=== PATIENT | male | born 1970 | race Caucasian/White ===

== ENCOUNTER 2016-09-27 21:35 | Emergency (ER) | payer BC, OTHER ==
[2016-09-27 21:48] VITALS: BP 118/85
[2016-09-27] MEDS ORDERED: Tetan/Diph/Pertus SYR(Tdap)* 0.5 ML SYR(BOOSTRIX) use SYR IM ONE (21:54)
--- NOTE | 2016-09-27 22:01 | UC ---
Laceration HPI - HPI Summary HPI Summary: WAS ON A 10 FOOT LADDER IN [place] THIS EVENING WHEN HE LOST HIS BALANCE AND FELL. FACE STRUCK LADDER. HAS A LACERATION UNDER RIGHT EYE WITH EYE LID BRUISING AND SWELLING. NOT TENDER OVER ORBITS OR NOSE. NO LOC. UNKNOWN DATE OF LAST TETANUS. - History Of Current Complaint Chief Complaint: UCTrauma Stated Complaint: PT FELL OFF LADDER FACIAL INJURY / LACERATION Time Seen by Provider: 09/27/16 21:41 Hx Obtained From: Patient, Family/Wireless Sales Manager - Laceration Location: Face Mechanism Of Injury: Blunt Trauma Onset/Duration: Sudden Onset, Lasting Minutes, Still Present Severity: Moderate Pain Intensity: 4 Pain Scale Used: 0-10 Numeric - Allergies/Home Medications Allergies/Adverse Reactions: Allergies Allergy/AdvReac Type Severity Reaction Status Date / Time No Known Allergies Allergy Verified 09/27/16 21:40 Home Medications: Home Medications Naproxen TAB* [Naprosyn TAB*] 375 mg PO Q8H PRN 09/27/16 [History Confirmed ] PMH/Surg Hx/FS Hx/Imm Hx - Additional Past Medical History Additional PMH: ARTHRITIS - Surgical History Surgical History: None - Family History Known Family History: Positive: Diabetes - mother Negative: Cardiac Disease, Hypertension - Social History Alcohol Use: Weekly Alcohol Amount: 12 pack of beer a week Substance Use Type: None Smoking Status (MU): Former Smoker Amount Used/How Often: about 1 ppd Length of Time of Smoking/Using Tobacco: smoking age 16 to age 30, chewing since age 30 - Immunization History Most Recent Influenza Vaccination: NOT THIS SEASON Review of Systems Constitutional: Negative Skin: Bruising, Other - LACERATION UNDER RIGHT EYE Eyes: Negative Respiratory: Negative Cardiovascular: Negative Gastrointestinal: Negative All Other Systems Reviewed And Are Negative: Yes Physical Exam Triage Information Reviewed: Yes Appearance: Well-Appearing, No Pain Distress, Well-Nourished Vital Signs: Initial Vital Signs Temp 99.1 F 09/27/16 21:41 Pulse 82 09/27/16 21:41 Resp 18 09/27/16 21:41 BP 118/85 09/27/16 21:41 Pulse Ox 96 09/27/16 21:41 Vital Signs Reviewed: Yes Eyes: Positive: Conjunctiva Clear, Other: - PERRL, EOMI. ENT: Positive: Hearing grossly normal, Pharynx normal, TMs normal Neck: Positive: Supple Respiratory: Positive: No respiratory distress, No accessory muscle use Cardiovascular: Positive: Pulses Normal Abdomen Description: Positive: Soft Musculoskeletal: Positive: No Edema, Other: - NOT TTP OVER ORBITAL BONES OR NASAL BRIDGE Neurological: Positive: Alert Psychological: Positive: Age Appropriate Behavior Skin: Positive: Other - 3.5CM LINEAR LACERATION UNDER RIGHT EYE. RIGHT UPPER AND LOWER EYELIDS BRUISED AND SWOLLEN. Laceration Repair - Laceration Repair 1 Description: Linear Laceration Size After Repair: Length (cm) - 3.5CM, Width (mm) - 0MM, Depth (mm) - 4MM Modified For Repair: No Type Injection: Local Anesthesia Used: 1.0% Lido Irrigation With Pressure Irrigation Device: Yes Closure Material: Sutures - #7 Closure Method: Single Layer Suture Of: Skin Suture Type: Other - 6-0 SURGIPRO Laceration Course/Dx - Differential Dx - Laceration/Wound Provider Diagnoses: 1. LACERATION REPAIR - FACE. 2. FACIAL CONTUSION. 3. UPDATE TDAP Discharge - Discharge Plan Condition: Stable Disposition: HOME Patient Education Materials: Laceration (ED), Black Eye (ED), Facial Contusion (ED), Facial Laceration (ED) Referrals: Flo GalvinFlo [Primary Care Provider] - If Needed Additional Instructions: APPLY THIN LAYER ANTIBIOTIC OINTMENT UNDER BANDAGE FOR FIRST 2-3 DAYS ONLY. CHANGE BANDAGE DAILY AND NEEDED IF IT BECOMES SOILED OR WET. SEEK FOLLOW-UP IF YOU DEVELOP SPREADING REDNESS OF THE SKIN, PURULENT DRAINAGE, FEVER, INCREASED PAIN OR ANY OTHER CONCERNING SYMPTOMS. RETURN FOR SUTURE REMOVAL IN 10 DAYS GO TO THE ER WITHOUT FAIL IF YOU DEVELOP UNEQUAL PUPILS, VISUAL DISTURBANCE, GAIT INSTABILITY, SPEECH DIFFICULTY, NAUSEA/VOMITING, WORSENING HEADACHE, DIZZINESS, CONFUSION, WEAKNESS OR ANY OTHER CONCERNING SYMPTOMS. TETANUS IMMUNIZATION GIVEN: You have been given an immunization against tetanus. Please record this in your records. In general, a booster is needed only once every 10 years. The tetanus shot protects against tetanus or "lockjaw," which is a complication of certain wound infections (the tetanus shot cannot protect against the actual infection). The immunization site may become warm and red due to local reaction. If this occurs, apply warm compresses and take aspirin or ibuprofen to reduce inflammation and discomfort. Return for evaluation if the reaction becomes severe.
[2016-09-27] MEDS ORDERED: Lidocaine 1% MPF* 2 ML VIAL ONE (22:03)
== END 2016-09-27 22:40 | disposition home or self-care (01) ==
LOC: UCCORT 21:35
DX: S01.81XA Laceration without foreign body of other part of head, initial encounter (principal); W11.XXXA Fall on and from ladder, initial encounter; Y93.9 Activity, unspecified; Y92.59 Other trade areas as the place of occurrence of the external cause; F10.99 Alcohol use, unspecified with unspecified alcohol-induced disorder; F17.220 Nicotine dependence, chewing tobacco, uncomplicated; Z23 Encounter for immunization
CPT/HCPCS: 12013; 90471; 90715; 99211; G0463

== ENCOUNTER 2016-10-07 16:39 | Emergency (ER) | payer BC ==
[2016-10-07 16:54] VITALS: BP 120/74
--- NOTE | 2016-10-07 17:08 | UC ---
HPI Wound/Suture Re-check - HPI Summary HPI Summary: 46 female presents with need to have his sutures removed. He had [address] under his right eye approximately 10 days ago due to a laceration. He has not had any complications, discharge, or erythema of the area. States it looks much better and is not that sore anymore. Denies fever/chills. - History Of Current Complaint Chief Complaint: UCSkin Stated Complaint: SUTURE REMOVAL Time Seen by Provider: 10/07/16 16:57 Hx Obtained From: Patient Procedure Type: suture removal - Allergies/Home Medications Allergies/Adverse Reactions: Allergies Allergy/AdvReac Type Severity Reaction Status Date / Time No Known Allergies Allergy Verified 10/07/16 16:54 PMH/Surg Hx/FS Hx/Imm Hx Endocrine History Of: Denies: Diabetes Psychological History Of: Denies: Anxiety - Surgical History Surgical History: None - Family History Known Family History: Positive: Diabetes - mother Negative: Cardiac Disease, Hypertension - Social History Alcohol Use: Weekly Alcohol Amount: 12 pack of beer a week Substance Use Type: None Smoking Status (MU): Former Smoker Amount Used/How Often: about 1 ppd Length of Time of Smoking/Using Tobacco: smoking age 16 to age 30, chewing since age 30 - Immunization History Most Recent Influenza Vaccination: NOT THIS SEASON Review of Systems Constitutional: Negative Skin: Negative Eyes: Negative ENT: Negative Respiratory: Negative Cardiovascular: Negative Motor: Negative Neurovascular: Negative Musculoskeletal: Negative All Other Systems Reviewed And Are Negative: Yes Physical Exam Triage Information Reviewed: Yes Appearance: Well-Appearing, No Pain Distress, Well-Nourished Vital Signs: Initial Vital Signs Temp 99.2 F 10/07/16 16:52 Pulse 74 10/07/16 16:52 Resp 16 10/07/16 16:52 BP 120/74 10/07/16 16:52 Pulse Ox 96 10/07/16 16:52 Vital Signs Reviewed: Yes Eyes: Positive: Conjunctiva Clear ENT: Positive: Hearing grossly normal Neck: Positive: Supple, Nontender Respiratory: Positive: Chest non-tender, Lungs clear, Normal breath sounds Cardiovascular: Positive: RRR, No Murmur Musculoskeletal: Positive: Strength Intact, ROM Intact, No Edema Neurological: Positive: Alert, Muscle Tone Normal Psychological Exam: Normal Skin: Positive: Other - 7 sutures under right eye, periorbital space noted. well -approximated, no dehiscense, no discharge, edema, or erythema noted. healed nicely. 7 sutures removed without complication. Course/Dx - Course Course Of Treatment: 7 sutures removed from under right eye in periorbital space. aware of worsening signs or symptoms/ signs of infection to watch out for. - Differential Dx - Laceration/Wound Differential Diagnoses: Cellulitis, Dehiscence, Healing Wound, Suture Removal Provider Diagnoses: suture removal Discharge - Discharge Plan Condition: Improved Disposition: HOME Patient Education Materials: Stitches Removal (ED) Referrals: NADEEM Shipman [Primary Care Provider] - Additional Instructions: If you develop symptoms of redness, fever/chills, swelling, discharge or re- opening of the wound please return or seek medical attention promptly.
== END 2016-10-07 17:11 | disposition home or self-care (01) ==
LOC: UCCORT 16:39
DX: Z48.02 Encounter for removal of sutures (principal); F10.99 Alcohol use, unspecified with unspecified alcohol-induced disorder; Z87.891 Personal history of nicotine dependence
CPT/HCPCS: 99211; G0463

== ENCOUNTER 2017-03-01 10:39 | Emergency (ER) | payer BC ==
[2017-03-01 10:47] VITALS: BP 123/67
--- NOTE | 2017-03-01 11:12 | UC ---
Skin Complaint HPI - HPI Summary HPI Summary: Pt reports poison krystal exposure yesterday. Pt reports that he has "itchy, erythematous, small blisters, pruritic skin on right forearm and right side of forehead and right eyebrow. - History of Current Complaint Chief Complaint: UCSkin Time Seen by Provider: 03/01/17 11:01 Stated Complaint: SKIN COMPLAINT Hx Obtained From: Patient Onset/Duration: Sudden Onset, Lasting Hours - yesterday known exposure, Still Present, Worse Since - onset Skin Exposure Onset/Duration: Days Ago - 1 Timing: Constant Onset Severity: Mild Current Severity: Mild Location: Discrete - right side forehead, right forearm, Face Character: Pruritus, Redness, Raised Aggravating: Touch Alleviating: Unknown Associated Signs & Symptoms: Positive: Rash, Tenderness Related History: Possible Reaction to: Environmental Exposure - poison krystal - Allergy/Home Medications Allergies/Adverse Reactions: Allergies Allergy/AdvReac Type Severity Reaction Status Date / Time No Known Allergies Allergy Verified 03/01/17 10:47 Review of Systems Constitutional: Negative Skin: Rash Eyes: Negative ENT: Negative Respiratory: Negative Cardiovascular: Negative Gastrointestinal: Negative Genitourinary: Negative Motor: Negative Neurovascular: Negative Musculoskeletal: Negative Neurological: Negative Psychological: Negative All Other Systems Reviewed And Are Negative: Yes PMH/Surg Hx/FS Hx/Imm Hx Previously Healthy: Yes - Surgical History Surgical History: None - Family History Known Family History: Positive: Diabetes - mother Negative: Cardiac Disease, Hypertension - Social History Occupation: Employed Full-time Lives: With Family Alcohol Use: Weekly Alcohol Amount: 12 pack of beer a week Substance Use Type: None Smoking Status (MU): Current Every Day Smoker Type: Smokeless Tobacco Amount Used/How Often: 1/2can per day Length of Time of Smoking/Using Tobacco: smoking age 16 to age 30, chewing since age 30 Have You Smoked in the Last Year: No - Immunization History Most Recent Influenza Vaccination: NOT THIS SEASON Physical Exam Triage Information Reviewed: Yes Appearance: Well-Appearing Vital Signs: Initial Vital Signs Temp 98.8 F 03/01/17 10:41 Pulse 62 03/01/17 10:41 Resp 14 03/01/17 10:41 BP 123/67 03/01/17 10:41 Pulse Ox 98 03/01/17 10:41 Eye Exam: Normal ENT Exam: Normal Neck exam: Normal Respiratory Exam: Normal Cardiovascular Exam: Normal Abdominal Exam: Normal Musculoskeletal Exam: Normal Neurological Exam: Normal Psychological Exam: Normal Skin Exam: Other Skin: Positive: rashes - erythematous, small blisters, clear fluid filled vessicles Course/Dx - Differential Diagnoses - Skin Complaint Differential Diagnoses: Cellulitis, Contact Dermatitis, Poison Krystal - Diagnoses Provider Diagnoses: Poison Krystal. contact deramatitis Discharge - Discharge Plan Condition: Stable Disposition: HOME Prescriptions: LoraTADine TAB(NF) [Claritin 10 MG TAB(NF)] 10 mg PO DAILY #10 tab predniSONE TAB* [Deltasone TAB*] 20 mg PO DAILY #4 tab Patient Education Materials: Poison Krystal (ED) Referrals: NADEEM Shipman [Primary Care Provider] - If Needed Additional Instructions: Please monitor for signs and symptoms of worsening skin infection such as increased redness, tenderness, and discharge.
== END 2017-03-01 11:23 | disposition home or self-care (01) ==
LOC: UCCORT 10:39
DX: L23.7 Allergic contact dermatitis due to plants, except food (principal); Z72.0 Tobacco use
CPT/HCPCS: 99212; G0463